=== PATIENT | female | born 1990 | race Caucasian/White ===

== ENCOUNTER 2018-10-10 21:15 | Emergency (ER) | payer MEDICAID ==
[~2018-10-10] VITALS: Ht 172.7 cm; Wt 78.6 kg
[~2018-10-10 21:15] MED LIST: CYCL-394 PO; IBUP-1051 PO; ONDA4TAB59 PO
[2018-10-10 21:17] VITALS: BP 121/73
[2018-10-10] MEDS ORDERED: triamcinolone acetonide 40mg/ml inj IM ONE (21:40)
[2018-10-10] MEDS ORDERED: HYDR28CR14 TOP (21:40)
== END 2018-10-10 22:20 | disposition home or self-care (01) ==
LOC: ER 21:15
DX: L23.7 Allergic contact dermatitis due to plants, except food (principal); Z98.890 Other specified postprocedural states; Z79.899 Other long term (current) drug therapy
CPT/HCPCS: 96372; 99283; J3301

== ENCOUNTER 2018-10-15 18:57 | Emergency (ER) | payer MEDICAID ==
[~2018-10-15] VITALS: Ht 172.7 cm; Wt 73.5 kg
[~2018-10-15 18:57] MED LIST changes: +HYDR28CR14 TOP
[2018-10-15 19:04] VITALS: BP 117/69
[2018-10-15] MEDS ORDERED: PRED10TA PO (20:18)
[2018-10-15] MEDS ORDERED: diphenhydrAMINE 25mg capsule PO ONE (20:20)
[2018-10-15] MEDS ORDERED: predniSONE 20 mg tablet PO ONE (20:20)
== END 2018-10-15 20:33 | disposition home or self-care (01) ==
LOC: ER 18:58
DX: L25.5 Unspecified contact dermatitis due to plants, except food (principal); Z98.890 Other specified postprocedural states; Z79.899 Other long term (current) drug therapy
CPT/HCPCS: 99283; J7512; Q0163

== ENCOUNTER 2019-10-26 18:17 | Emergency (ER) | payer MEDICAID ==
[~2019-10-26] VITALS: Ht 172.7 cm; Wt 75.0 kg
[~2019-10-26 18:17] MED LIST changes: +PRED10TA PO
[2019-10-26] MEDS ORDERED: proparacaine 0.5% ophthalmic drops 15ml EACHEYE ONE (20:05)
[2019-10-26] MEDS ORDERED: ciprofloxacin 0.3% 2.5ml ophthalmic solution LEFTEYE STA (20:17)
[2019-10-26 20:33] VITALS: BP 139/81
== END 2019-10-26 20:51 | disposition home or self-care (01) ==
LOC: ER 20:51
DX: S05.02XA Injury of conjunctiva and corneal abrasion without foreign body, left eye, initial encounter (principal); T15.92XA Foreign body on external eye, part unspecified, left eye, initial encounter; Z98.890 Other specified postprocedural states; Z72.89 Other problems related to lifestyle; Z79.899 Other long term (current) drug therapy; W22.8XXA Striking against or struck by other objects, initial encounter; Y93.89 Activity, other specified; Y92.89 Other specified places as the place of occurrence of the external cause; Y99.8 Other external cause status
CPT/HCPCS: 65205; 65222; 99284

== ENCOUNTER 2023-06-05 09:55 | Emergency (ER) | payer MEDICAID ==
[~2023-06-05] VITALS: Ht 172.7 cm; Wt 73.4 kg
[2023-06-05 10:33] VITALS: BP 118/76; PULSE 74; RESP 16; TEMP 97.6; O2SAT 100
[2023-06-05] MEDS ORDERED: PRED20TA PO ×3 (10:41→10:50)
[2023-06-05] MEDS ORDERED: triamcinolone acetonide 40mg/ml inj IM ONE (10:45)
== END 2023-06-05 13:10 | disposition home or self-care (01) ==
LOC: ER 09:55
DX: L23.9 Allergic contact dermatitis, unspecified cause (principal)
CPT/HCPCS: 99283

== ENCOUNTER 2024-12-16 11:08 | Emergency (ER) | payer MEDICAID ==
[~2024-12-16] VITALS: Ht 172.7 cm; Wt 83.2 kg
[~2024-12-16 11:08] MED LIST changes: +PRED20TA PO
[2024-12-16 11:11] VITALS: BP 115/70; PULSE 72; RESP 16; TEMP 98.1; O2SAT 99
--- NOTE | 2024-12-16 11:15 | Physician Documentation ---
History of Present Illness ~ Chief Complaint: Rash Stated Complaint: POISON OAK Time Seen by MD: 11:14 Primary Medical Doctor: [facility] 34 year old female presents to the emergency department reporting that she has been clearing her property and has come in contact with ashley leyva over the last several days. She has a widespread itchy rash. She denies any issues with breathing or swallowing. Medication Reconciliation Allergies: Coded Allergies: No Known Allergies (Unverified , 12/16/24) Scheduled Cyclobenzaprine HCl (Cyclobenzaprine HCl), 10 MG PO BID Hydrocortisone (hydrocortisone 1% cream), 1 APPLIC TOP Q12H Hydroxyzine Hcl* (Atarax*), 1 TAB PO HS Ibuprofen* (Motrin*), 800 MG PO TID Ondansetron Hcl (Ondansetron Hcl), 4 MG PO Q8H PRN N/V Prednisone* (Prednisone*), 1 TAB PO DAILY Prednisone (Prednisone), 0 PO DAILY Triamcinolone Acetonide 0.1% Crm* (Kenalog 0.1% Crm*), 1 APPLIC TOP Q12H Past Medical History Past Medical History: No Pertinent History Past Surgical History: orthopedic surgeries Alcohol Use: Occasionally Drug Use: none Lives In: Home Review of Systems ROS As stated above in the HPI, otherwise all systems are reviewed and negative. Physical Exam Vital Signs: Temperature: 98.1, Source: Temporal, Heart Rate: 72, Respiratory Rate: 16, BP: 115/70, Pulse Oximetry: 99, Weight: 83.150 Oxygen Flow Rate: 0 Physical Exam General: Alert, no apparent distress. HEENT: PERRL, EOMI, no injection, moist mucous membranes. Uvula midline posterior. Neck: Full range of motion. Respiratory: Lungs clear, no respiratory distress. Chest: No accessory muscle use. Cardiovascular: Regular rate and rhythm, no murmurs. Gastrointestinal: Soft, nontender, nondistended. Bowels sounds present. Extremities: Normal range of motion, no deformity. Neurologic: Oriented x4. Psychiatric: Normal mood and affect. Skin: Normal color, warm and dry. No edema, no ecchymosis.Maculopapular rash noted to exposed skin. Progress Results/Orders Results/Orders Completed Orders - NATALI MUNOZ NP Methylprednisolone Acetate*Im* (Depo-Med (12/16/24 11:30) Dexamethasone Inj (Decadron 4mg/Ml Inj) (12/16/24 14:00) Dexamethasone Inj (Decadron 4mg/Ml Inj) (12/16/24 11:35) Vital Signs 12/16/24 11:11 Temp 98.1 Pulse 72 Resp 16 B/P (MAP) 115/70 Pulse Ox 99 O2 Flow Rate 0 Medical Decision Making Additional Comment Well-appearing. No airway involvement. No signs of systemic reaction. Treated in the emergency department with Depo-Medrol 80 mg IM in combination with dexamethasone 4 mg IM. Sent home with hydroxyzine, skin care instructions, and triamcinolone to be used for further rash issues. Departure Time of Disposition: 11:32 Disposition: 01 HOME / SELF CARE / HOMELESS Impression: Primary Impression: Poison oak dermatitis Condition: Stable Discharge Instructions: Poison [place] Dermatitis Additional Instructions: Tecnu or miguel dish soap wash with cool water after any potential further exposure. Use the topical steroid cream twice daily as needed. Take the hydroxyzine as needed for itching-best used at bedtime as it causes drowsiness. Return if worse. Referrals: NO PRIMARY CARE PROVIDER (PCP) Prescriptions Hydroxyzine Hcl* (Atarax*) 25 Mg Tablet 1 TAB PO HS for itching for 10 Days, #30 TAB Prov: NATALI MUNOZ NP 12/16/24 Triamcinolone Acetonide 0.1% Crm* (Kenalog 0.1% Crm*) 1 Applic Tube 1 APPLIC TOP Q12H for 10 Days, #80 GM Prov: NATALI MUNOZ NP 12/16/24 Education Educated: Patient, Family Educated regarding: diagnosis, treatment, prognosis, need for follow up Signature Scribe Signature: x Attestation: The note accurately reflects work and decisions made by me.Natali Bergman NP 12/16/24 11:40 NATALI MUNOZ NP Dec 16, 2024 11:15
[2024-12-16] MEDS ORDERED: KEN0.1O TOP (11:34)
[2024-12-16] MEDS ORDERED: dexamethasone 4mg/ml inj IV SCH (11:35)
[2024-12-16] MEDS ORDERED: HYDR-3686 PO (11:38)
[2024-12-16] MEDS: dexamethasone 4mg/ml inj IM ONE (11:46)
[2024-12-16] MEDS: methylPREDNISolone acetate 80mg/ml inj**IM only IM ONE (11:46)
[2024-12-16] MEDS ORDERED: dexamethasone 4mg/ml inj IM SCH (14:00)
== END 2024-12-16 11:59 | disposition home or self-care (01) ==
LOC: ER 11:08
DX: L23.7 Allergic contact dermatitis due to plants, except food (principal); Z79.899 Other long term (current) drug therapy; Z72.89 Other problems related to lifestyle
CPT/HCPCS: 96372; 99284; J1010; J1100